=== PATIENT | male | born 1980 | race Caucasian/White ===

== ENCOUNTER 2016-10-26 19:42 | Emergency (ER) | payer OTHER ==
[2016-10-26 21:48] LABS: HEMOGLOBIN 14.3 gm/dl (14.0-17.5); RED BLOOD COUNT 4.82 M/UL (4.20-5.50); WHITE BLOOD COUNT 6.5 K/UL (4.5-11.0)
[2016-10-26 22:13] LABS: BUN/CREATININE RATIO 10 (0-10)
== END 2016-10-26 23:36 | disposition home or self-care (01) ==
LOC: ER1 19:42
PROVIDERS: Student in an Organized Health Care Education/Training Program
DX: S00.83XA Contusion of other part of head, initial encounter (principal); S50.01XA Contusion of right elbow, initial encounter; S20.212A Contusion of left front wall of thorax, initial encounter; R10.12 Left upper quadrant pain; V49.50XA Passenger injured in collision with unspecified motor vehicles in traffic accident, initial encounter; Y92.410 Unspecified street and highway as the place of occurrence of the external cause
CPT/HCPCS: 36415; 70450; 71260; 72125; 72131; 73080; 80053; 80307; 81001; 82550; 82553; 83690; 83874; 84484; 85025; 93005; 96374; 99285; G0480; J1885; J7050; Q9962